=== PATIENT | male | born 1955 | race Caucasian/White ===

== ENCOUNTER 2019-02-13 14:15 | Outpatient (REF) | payer BC, SELFPAY ==
[2019-02-13 19:26] LABS: Cholesterol 290 mg/dL (50-200); HDL Cholesterol 96 mg/dL (40-60); LDL CHOLESTEROL 169 mg/dL (<100); Triglyceride 47 mg/dL (30-150)
== END 2019-02-13 14:35 ==
LOC: NCHCN 14:15
PROVIDERS: PCP Internal Medicine; Visit Provider Internal Medicine
DX: Z00.00 Encounter for general adult medical examination without abnormal findings (principal); Z13.220 Encounter for screening for lipoid disorders
CPT/HCPCS: 80061; 83721

== ENCOUNTER 2019-03-07 09:58 | Outpatient (REF) | payer BC, SELFPAY | END 2019-03-07 10:18 | LOC: NCHCN 09:58 | PROVIDERS: PCP Internal Medicine; Visit Provider Physician Assistant Medical | DX: N39.0 Urinary tract infection, site not specified (principal) | CPT/HCPCS: 87077; 87086; 87186 ==

== ENCOUNTER 2019-04-04 10:13 | Outpatient (REF) | payer BC, SELFPAY ==
[2019-04-06 10:10] LABS: PSA, Screening 2.7 ng/ml (0-4.5)
== END 2019-04-04 10:33 ==
LOC: NCHCN 10:13
PROVIDERS: PCP Internal Medicine; Visit Provider Physician Assistant Medical
DX: Z12.5 Encounter for screening for malignant neoplasm of prostate (principal); N40.0 Benign prostatic hyperplasia without lower urinary tract symptoms
CPT/HCPCS: 84153

== ENCOUNTER 2022-03-17 18:16 | Outpatient (REF) | payer MEDICARE, BC, SELFPAY ==
[2022-03-17 21:42] LABS: ESR 10 mm/hr (0-20); HCT 43.2 % (40.0-50.0); HGB 13.7 g/dL (13.5-17.5); MCH 29.1 pg (27.0-33.0); MCHC 31.7 % (32.0-36.0); MCV 92 fL (80-95); MPV 10.2 fL (8.0-11.0); Platelet Count 179 10^3/uL (130-400); RBC 4.71 10^6/uL (4.36-5.78); RDW 13.9 % (11.8-14.1); RDW-SD 47.7 fL; WBC 5.06 10^3/uL (4.4-10.8)
[2022-03-17 22:15] LABS: ALT 30 U/L (16-63); AST 23 U/L (15-37); Albumin 3.9 g/dL (3.4-5.0); Alkaline Phosphatase 80 U/L (46-116); Anion Gap 8.5 mmol/L (3-11); BUN 27 mg/dL (7-18); Bilirubin, Total 0.4 mg/dL (0.2-1.0); C-Reactive Protein 0.07 mg/dL (0.0-0.3); CO2 27.5 mmol/L (21.0-32.0); CREATININE 1.2 mg/dL (0.70-1.30); Calcium 9.3 mg/dL (8.5-10.1); Chloride 105 mmol/L (98-107); Glucose 95 mg/dL (74-106); Potassium 4.3 mmol/L (3.5-5.1); Sodium 141 mmol/L (136-145); TSH 1.91 uIU/mL (0.36-3.74); Total Protein 6.9 g/dL (6.4-8.2)
== END 2022-03-17 18:17 | disposition home or self-care (01) ==
LOC: NCHCN 18:16
PROVIDERS: PCP Internal Medicine; Visit Provider Internal Medicine
DX: R63.4 Abnormal weight loss (principal); M19.90 Unspecified osteoarthritis, unspecified site
CPT/HCPCS: 80053; 85027; 85652; 84443; 86140